=== PATIENT | female | born 1950 | race Caucasian/White ===

== ENCOUNTER 2016-12-28 10:50 | Emergency (ER) | payer OTHER ==
[2016-12-28 11:04] VITALS: BP 144/87; PULSE 98; TEMP 98.1; BMI 44.9
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
== END 2016-12-28 12:17 | disposition home or self-care (01) ==
LOC: FER 10:50
DX: S00.83XA Contusion of other part of head, initial encounter (principal); W18.30XA Fall on same level, unspecified, initial encounter; Y93.9 Activity, unspecified; Y92.9 Unspecified place or not applicable
CPT/HCPCS: 73090-TC-RT; 99283-25

== ENCOUNTER 2017-02-08 12:13 | Emergency (ER) | payer OTHER ==
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
[2017-02-08 12:22] VITALS: BP 146/65; PULSE 101; TEMP 98.7; BMI 44.1
== END 2017-02-08 13:04 | disposition home or self-care (01) ==
LOC: FER 12:13
DX: S42.002A Fracture of unspecified part of left clavicle, initial encounter for closed fracture (principal); V43.62XA Car passenger injured in collision with other type car in traffic accident, initial encounter; S43.402A Unspecified sprain of left shoulder joint, initial encounter; S40.012A Contusion of left shoulder, initial encounter; Y93.89 Activity, other specified; Y92.410 Unspecified street and highway as the place of occurrence of the external cause; I10 Essential (primary) hypertension; E07.9 Disorder of thyroid, unspecified
CPT/HCPCS: 73000-TC-LT; 73030-TC-LT; 99282-25

== ENCOUNTER 2018-06-23 13:23 | Emergency (ER) | payer OTHER ==
[2018-06-23 13:33] VITALS: BP 153/85; PULSE 88; TEMP 98; BMI 44.9
--- NOTE | 2018-06-23 13:35 | PDOC ---
History of Present Illness - General Chief Complaint: Suture/Staple Removal (other) Stated Complaint: suture removal Time Seen by Provider: 06/23/18 13:35 History Source: Patient Exam Limitations: No Limitations - History of Present Illness Initial Comments: 06/23/18 13:51 68 year old female presented to ED for suture removal. She states last she tripped and fell onto her face, denies LOC. She was seen and medically evaluated at an ED, CT head was done, and she was told it was normal, had sutures to right eyebrow placed and was prescribed Keflex. Pt denies fever, chills, nausea, vomiting, headache, dizziness, weakness, or any other symptoms. Pt is taking Keflex, denies missing any doses. Past History - Past Medical History Allergies/Adverse Reactions: Allergies Allergy/AdvReac Type Severity Reaction Status Date / Time No Known Allergies Allergy Verified 06/23/18 13:30 Home Medications: Ambulatory Orders Levothyroxine [Synthroid -] 112 mcg PO DAILY 12/28/16 Losartan/Hydrochlorothiazide [Losartan-Hctz 100-25 mg Tab] 1 each PO DAILY 12/28 COPD: No HTN: Yes Thyroid Disease: Yes - Surgical History Abdominal Surgery: Yes (HERNIA REPAIUR) - Suicide/Smoking/Psychosocial Hx Smoking History: Never smoked Hx Alcohol Use: Yes Drug/Substance Use Hx: No Substance Use Type: Alcohol Review of Systems - Review of Systems Able to Perform ROS?: Yes Comments:: 06/23/18 13:52 General: denies fever, chills, night sweats, generalized weakness. HEENT: denies sore throat, rhinorrhea, ear pain. Heart: denies chest pain, palpitations, syncope, lower extremity swelling, diaphoresis. Respiratory: denies shortness of breath, cough, sputum production, hemoptysis. Abdomen: denies abdominal pain, nausea, vomiting, diarrhea, constipation, blood in stool. : denies dysuria, increased urinary frequency, hematuria, urinary incontinence , flank pain. Back: denies back pain. Musculoskeletal: denies joint pain, muscle pain, joint swelling. Neurological: denies headache, dizziness, numbness, tingling, weakness. Skin: admits to sutures to right eyebrow. denies rash, abrasion. *Physical Exam - Vital Signs Last Vital Signs Temp Pulse Resp BP Pulse Ox 98 F 88 18 153/85 97 06/23/18 13:24 10 13:24 06/23/18 13:24 06/23/18 13:24 06/23/18 13:24 - Physical Exam Comments: 06/23/18 13:53 Constitutional: Well-nourished, Well-developed, appearing stated age. HEENT: head is normocephalic, atraumatic. EOMI. PERRLA. raccoon eye to right eye. Neck: supple. Full ROM. Heart: regular rhythm. no murmurs, rubs or gallops. Lungs: clear to auscultation bilaterally. no crackles, rhonchi or wheezing. no stridor. Abdomen: soft, nontender. normal bowel sounds. no rebound, guarding, masses. Extremities: Peripheral pulses intact. No lower extremity edema. Neurological: CN 2-12 grossly intact. Moves all four extremities. Psych: awake, alert, oriented x3. Follows commands. Answers questions appropriately. Skin: 9 running sutures to right eyebrow, healed well, no dehiscence, no erythema, no discharge. Medical Decision Making - Medical Decision Making 06/23/18 13:54 68 year old female presented to ED for suture removal. No complaints. No surrounding erythema, dehiscence, discharge. Initial Vital Signs Temp Pulse Resp BP Pulse Ox 98 F 88 18 153/85 97 06/23/18 13:24 06/23/18 13:24 06/23/18 13:24 06/23/18 13:24 06/23/18 13:24 Afebrile. No tachycardia. No tachypnea. Mild hypertension. No hypoxia. Running suture was removed from right eye brow without difficulty. Pt will be discharged with follow up instructions and strict return precautions. *DC/Admit/Observation/Transfer Diagnosis at time of Disposition: Visit for suture removal - Discharge Dispostion Disposition: HOME Condition at time of disposition: Stable Decision to Admit order: No - Referrals - Patient Instructions Printed Discharge Instructions: DI for Suture Removal Additional Instructions: You were seen today for suture removal. Continue taking the Keflex you were prescribed. Do not miss any doses. Follow up with your primary care doctor within 3 days. Call their office today and make an appointment for this week. Your care is not complete until you follow up. Return to the Emergency Department for fever, chills, nausea, vomiting, increased pain, or any other new, worsening or concerning symptoms. - Post Discharge Activity
--- NOTE | 2018-06-23 13:54 | PDOC ---
Attending Attestation - Resident Resident Name: Audrey Vasquez - ED Attending Attestation I have performed the following: I have examined & evaluated the patient, The case was reviewed & discussed with the resident, I agree w/resident's findings & plan, Exceptions are as noted - HPI HPI: 06/23/18 13:50 68yo F presents to the ED with suture removal. Sutures placed to R upper lateral brow at OSH after a trip and fall. Sutures placed last . Pt denies any fevers, pain, drainage from the site. Denies any other sxs. - Physicial Exam PE: 06/23/18 13:53 agree with resident exam - Medical Decision Making 06/23/18 13:53 68yo F presents for suture removal. Running suture to superior R lateral brow removed without complication by Dr. vasquez under my supervision. Scar counseling provided. Tdap UTD. Pt feels well. I discussed the physical exam findings, ancillary test results and final diagnoses with the patient. I answered all of the patient's questions. The patient was satisfied with the care received and felt comfortable with the discharge plan and treatment plan. The patient will call their primary care physician within 24 hours to arrange follow-up and will return to the Emergency Department with any new, persistent or worsening symptoms.
== END 2018-06-23 13:54 | disposition home or self-care (01) ==
LOC: FER 13:23
DX: Z48.02 Encounter for removal of sutures (principal)
CPT/HCPCS: 99281-25

== ENCOUNTER 2023-11-20 07:16 | Day surgery (SDC) | payer OTHER ==
[2023-11-13 12:31] VITALS: BMI 42.9
[2023-11-20 09:50] VITALS: TEMP 98
[2023-11-20 09:54] VITALS: BP 114/68; PULSE 90; RESP 19
== END 2023-11-20 09:55 | disposition home or self-care (01) ==
LOC: FASU-ENDO 07:16
PROVIDERS: ATTEND Internal Medicine Gastroenterology
PROC: 0DBH8ZX Excision of Cecum, Via Natural or Artificial Opening Endoscopic, Diagnostic (ICD-10-PCS; principal; 2023-11-20 08:55)
DX: K51.40 Inflammatory polyps of colon without complications (principal)
CPT/HCPCS: 88305-TC